=== PATIENT | female | born 1965 | race African-American/Black ===

== ENCOUNTER → 2016-03-24 | Day surgery (SDC) | payer OTHER ==
--- NOTE | 2016-03-24 12:02 | Diag Imaging Result Document ---
PROCEDURE NAME: US BREAST LIMITED UNILAT-LT - 03/24/2016 ULTRASOUND OF THE LEFT BREAST: FINDINGS: The patient was originally intended to have an ultrasound-guided biopsy of abnormality seen previously on 02/29/2016, principally visible on images 1 through 10. This is not reproducible on the current study. The area of inhomogeneous hypoechoic fibroglandular tissue which was demonstrated superolaterally on the previous study on images 25 through 39 is also less conspicuous on the current study. This being the case, biopsy was deferred and further ultrasonographic followup in 6 months is recommended. IMPRESSION: Diminishment of focal ultrasonographic findings 02/29/2016. Advise further ultrasonographic followup. ACR BI-RADS CATEGORY 3: PROBABLY BENIGN FINDING - SHORT INTERVAL FOLLOW-UP IS SUGGESTED. NOTE: This facility is accredited by the [employer] for Mammography. A negative mammography report should not delay biopsy if a dominant or clinically suspicious mass is present. Some cancers are not identified by mammography. Adenosis and dense breasts may obscure an underlying neoplasm.
== END | disposition home or self-care (01) ==
LOC: EDSTATUS 10:00 → EEVIPCON 10:00 → US 10:01
PROVIDERS: ATTEND Radiology Diagnostic Radiology
DX: R92.8 Other abnormal and inconclusive findings on diagnostic imaging of breast (principal); C16.9 Malignant neoplasm of stomach, unspecified

== ENCOUNTER 2016-05-08 12:43 | Inpatient (IN) | payer OTHER ==
[2016-05-08] MEDS ORDERED: NS 1,000 ML IV ONE (13:22)
--- NOTE | 2016-05-08 13:27 | PROVIDER DOCUMENTATION ---
HPI-Neurological Disorder - General Chief Complaint: Weakness Stated Complaint: Weakness x1 week Time Seen by Provider: 05/08/16 13:04 Allergies/Adverse Reactions: Patient Allergies Allergy/AdvReac Type Severity Reaction Status Date / Time No Known Allergies Allergy Verified 05/08/16 13:32 Home Medications: Home Medication List Medication Instructions Recorded Confirmed Last Taken Type Fluticasone 50 Mcg Nasal [place] 1 spray ALEX DAILY 06/11/13 05/01/16 05/01/16 History [Flonase] Tizanidine [Zanaflex] 4 mg PO TID 06/11/13 05/01/16 05/01/16 History Gabapentin [Neurontin] 600 mg PO TID 03/01/15 05/01/16 03/01/16 23:00 History Esomeprazole Magnesium [Nexium] 40 mg PO DAILY 05/13/15 05/01/16 05/01/16 History Mirtazapine [Remeron] 30 mg PO HS 05/13/15 05/01/16 05/01/16 History Ondansetron [Zofran] 4 mg PO Q6H PRN PRN #10 tablet 06/05/15 05/01/16 02/29/16 Rx Hydroxyzine HCl 25 mg PO 3-4XDAY PRN PRN 08/05/15 05/01/16 Unknown History Albuterol Sulfate Inhaler 2 puff INH DAILY PRN PRN #0 inhaler 08/06/15 05/01/16 Unknown Rx [Ventolin Hfa] Cetirizine [Zyrtec] 10 mg PO DAILY PRN PRN #0 tablet 08/06/15 05/01/16 Unknown Rx Alprazolam [Xanax] 1 mg PO TID 03/03/16 05/01/16 03/02/16 23:00 History Diphenhydramine/Antacid/Lidocaine 5 ml PO DIRECTED PRN 03/03/16 05/01/16 Unknown History Enoxaparin [Lovenox] 60 mg SUBQ Q12H 03/03/16 05/01/16 05/01/16 History Lidocaine 2% Viscous [Xylocaine 2% 5 - 10 ml PO Q4H PRN 03/03/16 05/01/16 Unknown History Viscous] Nystatin Susp [Mycostatin Susp] 5 ml PO 4XDAY PRN 03/03/16 05/01/16 Unknown History Oxycodone HCl 30 mg PO Q4H 03/03/16 05/01/16 05/01/16 History Prochlorperazine [Compazine] 10 mg PO Q4-6H PRN PRN 03/03/16 05/01/16 03/02/16 14:00 History Morphine Liquid [Roxanol Conc. 0.25 - 1 ml PO Q1H PRN PRN 05/01/16 05/01/16 History Liquid] Promethazine [Phenergan] 25 mg PO Q6H PRN PRN 05/01/16 05/01/16 Unknown History - History of Present Illness-Neuro Nature of Presenting Problem: A 50 y/o F who had recent visit to ER and was diagnosed with hypokalemia and was recommended to see PCP, pt on hospice at home, today she presented with worsening of weakness and left sided weakness started today morning unsure of timings, pt gets pain medications Headache Location: reports: global. denies: frontal Severity: reports: mild Onset/Duration: reports: unsure Timing: reports: still present Context: reports: paresthesia, facial droop Character of Altered Mental Status: reports: N/A Any recent trauma/injury?: reports: none Character of Deficits: reports: falling New weakness or altered sensation location:: reports: LUE, LLE, left facial, general (diffuse) Cognitive Baseline: alert, oriented x3 Associated Symptoms: reports: denies symptoms Similar Symptoms Previously?: Yes Recently seen or treated by another doctor?: Yes - Seizure First time to have a seizure?: No Witnessed seizure?: No Review of Systems - Adult - REVIEW OF SYSTEMS - ADULT Constitutional: reports: no symptoms reported Eyes: reports: no symptoms reported Ears, Nose, Mouth & Throat: reports: no symptoms reported Cardiovascular: reports: no symptoms reported Respiratory: reports: no symptoms reported Gastrointestinal: reports: no symptoms reported Genitourinary: reports: no symptoms reported Musculoskeletal: reports: no symptoms reported Integumentary: reports: no symptoms reported Neurological: reports: see HPI Psychiatric: reports: no symptoms reported Endocrine: reports: no symptoms reported Hematologic/Lymphatic: reports: no symptoms reported Allergic/Immunologic: reports: no symptoms reported All Other Systems: Reviewed and Negative Past History - Adult - PAST MEDICAL HISTORY-ADULT Review of Records: reports: Old Records Reviewed, Nursing Assessment Review, Medications Reviewed, Social history reviewed & non-contributory. Major Childhood Illnesses: reports: denies history Cardiovascular: reports: HTN, hyperlipidemia, palpitations Respiratory: reports: other (sarcoid) Gastrointestinal: reports: cancer (stomach), diverticulosis, GERD Obstetrical/Gynecological: reports: denies history, uterine/ovarian cancer Genitourinary: reports: kidney stones, chronic UTI's Musculoskeletal: reports: chronic pain, fibromyalgia Neurological: reports: headaches/migraines Psychiatric: reports: anxiety, depression Endocrine/Immune: reports: thyroid disorder Other Conditions: reports: denies history - PRIOR SURGERIES/PROCEDURES Surgical/Procedure History: reports: BTL, other (parathyroid x2) - IMMUNIZATION STATUS Childhood Immunizations: See Nurse Assessment Flu Vaccine: See Nurse Assessment - FAMILY HISTORY Family History: diabetes, HTN Physical Exam- Neurological - Physical Exam-Neuro Initial Vital Signs Reviewed: Yes General Appearance: mild distress Eye Exam: right eye: normal inspection, PERRL, EOMI HENMT: normocephalic/atraumatic, other (dry mucous membranes) Head Injury: no evidence of injury Neck: non-tender, supple, normal inspection. 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 Exam: normal hearing, normal speech, PERRL Coordination/Gait: normal finger to nose Motor/Sensory: no motor deficit, no sensory deficit, no pronator drift Neurologic: other (poorly follows command unable to do comprehensive neuroexam) Progress - PLAN OF CARE/RESULTS Progress/Plan/Lab Results: Laboratory Tests 05/08/16 05/08/16 05/08/16 13:20 13:20 13:20 WBC 9.77 RBC 3.49 L Hgb 11.2 L Hct 32.1 L MCV 92.0 MCH 32.1 H MCHC 34.9 RDW Std Deviation 13.1 Plt Count 187 MPV 9.7 Immature Gran % (Auto) 0.2 Neut % (Auto) 88.4 H Lymph % (Auto) 6.3 L [place] % (Auto) 4.9 Eos % (Auto) 0.1 Baso % (Auto) 0.1 Immature Gran # (Auto) 0.02 Neut # (Auto) 8.63 H Lymph # (Auto) 0.62 L [place] # (Auto) 0.48 Eos # (Auto) 0.01 Baso # (Auto) 0.01 PT INR PTT (Actin FS) D-Dimer 2.44 H Sodium 142 Potassium 2.8 L Chloride 96 L Carbon Dioxide 28 Anion Gap 18 BUN 9 Creatinine 0.8 Estimated GFR/1.73 m2 > 60 BUN/Creatinine Ratio 11 Glucose 110 H Calculated Osmolality 282 Calcium 10.9 H Magnesium 1.7 Total Bilirubin 0.62 AST 19 ALT 23 Alkaline Phosphatase 76 Creatine Kinase 20 L Troponin T Sqg-[id number]-[id number] Pept Total Protein 7.5 Albumin 4.5 Globulin 3.0 Albumin/Globulin Ratio 1.5 05/08/16 05/08/16 05/08/16 13:20 13:20 13:20 WBC RBC Hgb Hct MCV MCH MCHC RDW Std Deviation Plt Count MPV Immature Gran % (Auto) Neut % (Auto) Lymph % (Auto) [place] % (Auto) Eos % (Auto) Baso % (Auto) Immature Gran # (Auto) Neut # (Auto) Lymph # (Auto) [place] # (Auto) Eos # (Auto) Baso # (Auto) PT 12.7 H INR 1.20 PTT (Actin FS) 19.8 L D-Dimer Sodium Potassium Chloride Carbon Dioxide Anion Gap BUN Creatinine Estimated GFR/1.73 m2 BUN/Creatinine Ratio Glucose Calculated Osmolality Calcium Magnesium Total Bilirubin AST ALT Alkaline Phosphatase Creatine Kinase Troponin T < 0.010 Vnj-[id number]-Oanbdbichec Pept 437 H Total Protein Albumin Globulin Albumin/Globulin Ratio Orders Category Date Time Status Admit - [facility] Routine AdmDCTranf 05/08/16 16:00 Ordered Call Admitting on Arrival AT ADMISSION Care 05/08/16 16:01 Active Cardiac Monitoring DIRECTED Care 05/08/16 13:21 Active Neurological Check Q4H Care 05/08/16 16:01 Active Saline Loc NOW Care 05/08/16 13:21 Active Vital Signs Order ARRIVAL TO ROOM Care 05/08/16 16:00 Active ANGIOGRAM/PULMONARY ARTERIES [CT] Stat Exams 05/08/16 16:02 Ordered CHEST-1 VIEW [RAD] Stat Exams 02/20/17 13:21 Completed HEAD W/O CONTRAST [CT] Stat Exams 05/08/16 13:20 Completed CBC WITH ELECTRONIC DIFF [HEME] Stat Lab 05/08/16 13:20 Completed CK PROFILE [SP CHEM] Stat Lab 05/08/16 13:20 Completed COMPREHENSIVE METABOLIC PANEL [CHEM] Stat Lab 05/08/16 13:20 Completed D-DIMER [CHEM] Stat Lab 05/08/16 13:20 Completed MAGNESIUM [CHEM] Stat Lab 05/08/16 13:20 Completed PRO B-NATRIURETIC PEPTIDE Stat Lab 05/08/16 13:20 Completed PROTIME WITH INR [COAG] Stat Lab 05/08/16 13:20 Completed PTT [COAG] Stat Lab 05/08/16 13:20 Completed TROPONIN T Stat Lab 05/08/16 13:20 Completed 0.9% Sodium Chloride Inj [Ns] 1,000 ml Med 05/08/16 13:22 Discontinued IV 999 mls/hr Hydromorphone [Dilaudid] Med 05/08/16 14:38 Discontinued 1 mg IV NOW ONE Morphine Med 05/08/16 16:00 Active 2 mg IV Q2H PRN PRN Morphine Med 05/08/16 16:00 Discontinued 4 mg IV NOW ONE Potassium Chloride 20% Liquid Med 05/08/16 15:14 Discontinued 40 meq PO NOW ONE Potassium Chloride 40 Meq/Swi 100 ml Med 05/08/16 15:59 Active IV ONCE Oxygen Device Routine Oth 05/08/16 16:01 Active EKG [EKG] Stat Ther 05/08/16 13:05 Draft Vital Signs Temp Pulse Resp BP Pulse Ox 05/08/16 15:03 98 F 70 18 155/87 100 05/08/16 13:02 98.0 F 102 H 22 155/119 100 No Known Allergies Allergy (Verified 05/08/16 13:32) Fluticasone 50 Mcg Nasal [place] [Flonase] 1 spray ALEX DAILY 06/11/13 Tizanidine [Zanaflex] 4 mg PO TID 06/11/13 Gabapentin [Neurontin] 600 mg PO TID 03/01/15 Esomeprazole Magnesium [Nexium] 40 mg PO DAILY 05/13/15 Mirtazapine [Remeron] 30 mg PO HS 05/13/15 Ondansetron [Zofran] 4 mg PO Q6H PRN PRN #10 tablet 06/05/15 Hydroxyzine HCl 25 mg PO 3-4XDAY PRN PRN 08/05/15 Albuterol Sulfate Inhaler [Ventolin Hfa] 2 puff INH DAILY PRN PRN #0 inhaler Cetirizine [Zyrtec] 10 mg PO DAILY PRN PRN #0 tablet 08/06/15 Alprazolam [Xanax] 1 mg PO TID 03/03/16 Diphenhydramine/Antacid/Lidocaine 5 ml PO DIRECTED PRN 03/03/16 Enoxaparin [Lovenox] 60 mg SUBQ Q12H 03/03/16 Lidocaine 2% Viscous [Xylocaine 2% Viscous] 5 - 10 ml PO Q4H PRN 03/03/16 Nystatin Susp [Mycostatin Susp] 5 ml PO 4XDAY PRN 03/03/16 Oxycodone HCl 30 mg PO Q4H 03/03/16 Prochlorperazine [Compazine] 10 mg PO Q4-6H PRN PRN 03/03/16 Morphine Liquid [Roxanol Conc. Liquid] 0.25 - 1 ml PO Q1H PRN PRN 05/01/16 Promethazine [Phenergan] 25 mg PO Q6H PRN PRN 05/01/16 Laboratory 05/08/16 05/08/16 05/08/16 13:20 13:20 13:20 WBC RBC Hgb Hct MCV MCH MCHC RDW Std Deviation Plt Count MPV Immature Gran % (Auto) Neut % (Auto) Lymph % (Auto) [place] % (Auto) Eos % (Auto) Baso % (Auto) Immature Gran # (Auto) Neut # (Auto) Lymph # (Auto) [place] # (Auto) Eos # (Auto) Baso # (Auto) PT 12.7 H INR 1.20 PTT (Actin FS) 19.8 L D-Dimer Sodium Potassium Chloride Carbon Dioxide Anion Gap BUN Creatinine Estimated GFR/1.73 m2 BUN/Creatinine Ratio Glucose Calculated Osmolality Calcium Magnesium Total Bilirubin AST ALT Alkaline Phosphatase Creatine Kinase Troponin T < 0.010 Epn-A-Qvwllpxhavo Pept 437 H Total Protein Albumin Globulin Albumin/Globulin Ratio 05/08/16 05/08/16 05/08/16 13:20 13:20 13:20 WBC 9.77 RBC 3.49 L Hgb 11.2 L Hct 32.1 L MCV 92.0 MCH 32.1 H MCHC 34.9 RDW Std Deviation 13.1 Plt Count 187 MPV 9.7 Immature Gran % (Auto) 0.2 Neut % (Auto) 88.4 H Lymph % (Auto) 6.3 L [place] % (Auto) 4.9 Eos % (Auto) 0.1 Baso % (Auto) 0.1 Immature Gran # (Auto) 0.02 Neut # (Auto) 8.63 H Lymph # (Auto) 0.62 L [place] # (Auto) 0.48 Eos # (Auto) 0.01 Baso # (Auto) 0.01 PT INR PTT (Actin FS) D-Dimer 2.44 H Sodium 142 Potassium 2.8 L Chloride 96 L Carbon Dioxide 28 Anion Gap 18 BUN 9 Creatinine 0.8 Estimated GFR/1.73 m2 > 60 BUN/Creatinine Ratio 11 Glucose 110 H Calculated Osmolality 282 Calcium 10.9 H Magnesium 1.7 Total Bilirubin 0.62 AST 19 ALT 23 Alkaline Phosphatase 76 Creatine Kinase 20 L Troponin T Wth-X-Plpydtchcvx Pept Total Protein 7.5 Albumin 4.5 Globulin 3.0 Albumin/Globulin Ratio 1.5 - EKG 1 EKG Interpretation (*Must complete 3 of following elements*): Abnormal (NSR nos specific T wave inversions) - XRAY 1 XRAY Study: Chest Impression: See EMR Report - CT/MRI 1 CT Study: Head Impression: See EMR Report - CONSULTS/PCP/HOSPITALIST Notification #1 *Consult/PCP/Hospitalist*: Dr Barroso Time Discussed: 16:05 Consult Disposition: Admit Departure - Departure Time of Disposition Order: 16:03 DIAGNOSIS: Hypokalemia due to loss of potassium Chest pain Qualifiers: Chest pain type: unspecified Qualified Code(s): R07.9 - Chest pain, unspecified Chronic pain Qualifiers: Chronic pain type: due to neoplasm Qualified Code(s): G89.3 - Neoplasm related pain (acute) (chronic) Disposition: ADMITTED INPATIENT 09 Certified Medical Emergency: Emergent Condition: Fair Referrals: Mehul Barroso MD [Primary Care Provider] - - Critical Care Note Comments: A 50 y/o F who was on hospice presented with non specific complains including chest pain and unilatereal weakness no acute changes on EKG and CXR CT scan no acute changes given pain medications not well controlled will admit for pain management
[2016-05-08 13:53] LABS: BASO% 0.1 % (0.0-0.8); EOS# 0.01 X1000 (0.0-0.7); EOS% 0.1 % (0.0-10.0); HEMATOCRIT 32.1 % (37.0-47.0); HEMOGLOBIN 11.2 g/dL (12.0-16.0); IMM GRAN# 0.02 X1000 (0.0-0.04); IMM GRAN% 0.2 % (0.0-0.5); LYMPH# 0.62 X1000 (1.2-3.4); LYMPH% 6.3 % (20.5-51.1); MANUAL DIFF NEEDED? NO; MCH 32.1 PG (27-31); MCHC 34.9 g/dL (33-37); MONO# 0.48 X1000 (0.11-0.59); MONO% 4.9 % (1.7-9.3); MPV 9.7 FL (7.4-10.4); NEUT% 88.4 % (42.2-75.2); PLT 187 X1000 (130-400); RBC 3.49 XMIL (4.2-5.4)
[2016-05-08 14:00] LABS: INR 1.2; PROTIME 12.7 Seconds (9.2-11.7)
[2016-05-08 14:01] LABS: PTT 19.8 Seconds (22.0-36.0)
[2016-05-08 14:16] LABS: AGAP 18; ALBUMIN 4.5 g/dL (3.5-5.0); ALKALINE PHOSPHATASE 76 U/L (32-104); BUN 9 mg/dL (8-22); CALCIUM 10.9 mg/dL (8.8-10.2); CHLORIDE 96 mmol/L (98-107); CK PROFILE 20 U/L (24-173); COSMO 282; GOT 19 U/L (10-30); GPT 23 U/L (10-36); MAGNESIUM 1.7 mg/dL (1.5-2.7); POTASSIUM 2.8 mmol/L (3.5-5.1); SODIUM 142 mmol/L (136-145); TCO2 28 mmol/L (25-35); TOTAL BILIRUBIN 0.62 mg/dL (0.20-1.00); TOTAL PROTEIN 7.5 g/dL (6.3-8.3)
--- NOTE | 2016-05-08 14:32 | Diag Imaging Result Document ---
PROCEDURE NAME: HEAD W/O CONTRAST - 05/08/2016 CT HEAD WITHOUT CONTRAST: TECHNIQUE: A dose reduction protocol was used. COMPARISON: 05/01/2016. FINDINGS: There is no evidence of intracranial hemorrhage, mass effect, midline shift, or hydrocephalus. There is no evidence of infarct, although acute infarcts may not be immediately visible. IMPRESSION: No visible acute process. No hemorrhage or mass effect.
[2016-05-08] MEDS ORDERED: DILAUDID IV ONE (14:38)
--- NOTE | 2016-05-08 14:52 | Diag Imaging Result Document ---
PROCEDURE NAME: CHEST-1 VIEW - 05/08/2016 ONE-VIEW CHEST: COMPARISON: 05/06/16. FINDINGS: The heart size is normal. The lungs appear clear. There is no pleural effusion or pneumothorax identified. Central venous catheter remains in place. IMPRESSION: No evidence of acute disease.
[2016-05-08] MEDS ORDERED: POTASSIUM CHLORIDE 20% LIQUID PO ONE (15:14)
--- NOTE | 2016-05-08 15:34 | EKG Report ---
Test Performed on : 05/08/2016 1:34:08 PM Test Reason : WEAKNESS Blood Pressure : / mmHG Vent. Rate : 061 BPM Atrial Rate : 061 BPM P-R Int : 162 ms QRS Dur : 078 ms QT Int : 404 ms P-R-T Axes : 042 049 033 degrees QTc Int : 406 ms Normal sinus rhythm. Minimal voltage criteria for LVH, may be normal variant Nonspecific T wave abnormality Abnormal ECG When compared with ECG of 08-MAY-2016 13:27, (Unconfirmed) Sinus rhythm. has replaced Atrial fibrillation. Vent. rate has decreased BY [address] no longer depressed in Anterior leads Unconfirmed Result
[2016-05-08] MEDS ORDERED: POTASSIUM CHLORIDE 40 MEQ/SWI 100 ML IV ONE (15:59)
[2016-05-08] MEDS ORDERED: MORPHINE IV ONE ×2 (16:00→18:21)
[2016-05-08] MEDS: MORPHINE IV PRN ×3 (17:45→22:51)
[2016-05-08] MEDS ORDERED: ZYRTEC PO PRN (20:10)
[2016-05-08] MEDS ORDERED: COMPAZINE PO PRN (20:10)
[2016-05-08] MEDS ORDERED: PHENERGAN PO PRN (20:10)
[2016-05-08] MEDS ORDERED: VENTOLIN HFA INH PRN (20:10)
[2016-05-08] MEDS ORDERED: ZOFRAN PO PRN (20:10)
[2016-05-08] MEDS ORDERED: HYDROXYZINE PO PRN (20:10)
[2016-05-08] MEDS: KLONOPIN PO PRN (20:54)
[2016-05-08] MEDS: REMERON SOLTAB PO SCH (21:00)
[2016-05-08] MEDS: OXY IR PO SCH (21:11)
[2016-05-08] MEDS: CLINIMIX E 4.25%-5% SOLUTION 1,000 ML IV SCH (22:51)
[2016-05-08] MEDS: PROTONIX IV SCH (22:51)
[2016-05-08] MEDS: SODIUM CHLORIDE 0.9% INJ SCH (22:51)
[2016-05-09] MEDS: MORPHINE IV PRN (02:34)
[2016-05-09] MEDS: OXY IR PO SCH ×6 (03:08→18:52)
[2016-05-09] MEDS: ROXANOL CONC. LIQUID PO PRN (04:19)
[2016-05-09 06:09] LABS: MANUAL DIFF NEEDED? NO
--- NOTE | 2016-05-09 06:14 | HISTORY AND PHYSICAL ---
CHIEF COMPLAINT: Weakness, chest pain, headache, left-sided weakness, a lot of pain, multiple somatic complaints. HISTORY OF PRESENT ILLNESS: She is a 50-year-old, female who, unfortunately, has been suffering from metastatic CA of the stomach. Recently under the care of Dr. Gonzalez in [place]. Relegated to hospice care. Last time I had seen her was in April of last year. She was seen by several physicians in between which include Dr. Barbosa, Dr. Solis, Dr. Peoples, and Dr. Yeh. She has a port on the left side. She has a linitis plastica, metastatic disease in the volvulus. She was returned to the emergency room after revocation from the [facility]. In the ER, CT head is negative. Chest x-ray was stable. Potassium is low. She was given IV fluids, potassium replacement, and pain control. She lost a lot of weight. Apparently, she is a full code. PAST MEDICAL HISTORY: Metastatic CA of stomach, depression, protein calorie malnutrition, acid reflux disease, chronic pain. PAST SURGICAL HISTORY: Thyroid surgery, vaginal hysterectomy with the left ovary removed, left hip surgery, Port-A-Cath on the left side. MEDICINES: Dilaudid, Flonase, hydroxyzine, Remeron, Zyrtec. She is also on Zanaflex 4 mg p.o. t.i.d., Neurontin 600 t.i.d., Nexium 40 daily, nystatin suspension as directed, oxycodone 30 q.4, Roxanol as needed. ALLERGIES: Not known. SOCIAL HISTORY: , 3 children. Disabled. No smoking. No drug abuse. No alcohol. FAMILY HISTORY: Father of lung cancer at 55. Mom of heart failure. Brother at the age of 35. REVIEW OF SYSTEMS: HEENT: Headache, diplopia, weakness on the left side. Neck: No neck pain. No rigidity. Cardiopulmonary: Chest pain, shortness of breath. No PND. No orthopnea. Port on the left side. GI: History of nausea. No altered bowel habits. No bleeding per rectum. : No history of hesitancy, frequency. No swelling of legs. No joint pain. Neurologic: No obvious focal symptoms. PHYSICAL EXAMINATION: VITAL SIGNS: Vitals are stable, 5 feet 4 inches, 150 pounds. HEENT: Atraumatic, normocephalic. Pupils equal, react to light, and difficult to assess extraocular muscles. Tongue is in the midline. NECK: Supple. No rigidity. CHEST: Bilateral air entry. Port was seen in the left of the chest. HEART: Sounds are tachycardic. ABDOMEN: Belly is soft, scaphoid, diffusely tender. No signs of peritonitis. EXTREMITIES: No peripheral edema, cyanosis, clubbing. NEUROLOGIC: No obvious focal deficits. INVESTIGATIONS: CBC: White cell count 9.7, hematocrit 32, platelets 187,000. PT 12, INR 1.2. D- dimer 2.4. SMA 7 is normal. Potassium 2.8. Magnesium 1.7. Cardiac enzymes are normal. ProBNP is normal. CA level is 22.1. ASSESSMENT AND PLAN: A 50-year-old, female admitted to the hospital with stage IV metastatic stomach cancer, revoked hospice care. We will get the reports from Dr. Gonzalez in [place]. 1. Protein calorie malnutrition. Intravenous Clinimix. 2. Hypokalemia. Replace the potassium. 3. Deep venous thrombosis and gastrointestinal prophylaxis with Lovenox and Protonix. 4. Chronic anxiety, on Xanax. 5. Chronic pain, on gabapentin and oxycodone. 6. Chronic insomnia, on Remeron. 7. Pain control with morphine. 8. Chest pain. Positive D-dimer. CT pulmonary angiogram followup, 9. Headache, diplopia. There is no meningitis. CT head is negative. If symptoms do not improve, MRI of the brain and neurology consult. 10. Living will, full code. We will follow up on the clinical course.
[2016-05-09 06:33] LABS: BASO% 0.1 % (0.0-0.8); EOS# 0.03 X1000 (0.0-0.7); EOS% 0.4 % (0.0-10.0); HEMATOCRIT 28.2 % (37.0-47.0); HEMOGLOBIN 9.8 g/dL (12.0-16.0); LYMPH# 0.74 X1000 (1.2-3.4); MCH 32.9 PG (27-31); MCHC 34.8 g/dL (33-37); MCV 94.6 FL (81-99); MONO# 0.68 X1000 (0.11-0.59); MONO% 9.2 % (1.7-9.3); MPV 9.8 FL (7.4-10.4); NEUT% 80.3 % (42.2-75.2); PLT 138 X1000 (130-400); RBC 2.98 XMIL (4.2-5.4)
[2016-05-09 06:34] LABS: AGAP 12; BUN 14 mg/dL (8-22); CALCIUM 10.3 mg/dL (8.8-10.2); CHLORIDE 101 mmol/L (98-107); COSMO 282; MAGNESIUM 1.9 mg/dL (1.5-2.7); POTASSIUM 3.3 mmol/L (3.5-5.1); SODIUM 140 mmol/L (136-145); TCO2 27 mmol/L (25-35)
[2016-05-09] MEDS: CLINIMIX E 4.25%-5% SOLUTION 1,000 ML IV SCH ×2 (06:44→18:32)
--- NOTE | 2016-05-09 08:21 | Diag Imaging Result Document ---
PROCEDURE NAME: ANGIOGRAM/PULMONARY ARTERIES - 05/08/2016 CT OF THE CHEST WITH INTRAVENOUS CONTRAST: FINDINGS: There are no filling defects in the pulmonary arteries. The aorta is normal in appearance. There is no evidence of abnormal fluid collections. There is some fullness in the visualized portions of the renal collecting systems. There are calcified nodes in the pre-gilbert and right paratracheal region. There is no evidence of acute pulmonary parenchymal disease. IMPRESSION: No evidence of acute disease. The possibility of urinary tract obstruction should be considered. The findings were discussed with Dr. Barroso at 0805 hours by telephone.
[2016-05-09] MEDS ORDERED: POTASSIUM CHLORIDE 40 MEQ/SWI 100 ML IV ONE (09:00)
[2016-05-09] MEDS ORDERED: POTASSIUM CHLORIDE 20 MEQ/SWI 100 ML IV SCH (09:00)
[2016-05-09] MEDS: NEURONTIN PO SCH ×4 (09:06→18:16)
[2016-05-09] MEDS: FLONASE NAS SCH ×2 (09:07→09:15)
[2016-05-09] MEDS: LOVENOX SUBQ SCH ×2 (09:07→09:16)
[2016-05-09] MEDS: ZANAFLEX PO SCH ×5 (09:07→20:35)
[2016-05-09] MEDS: XANAX PO SCH ×5 (09:09→20:34)
[2016-05-09] MEDS ORDERED: DILAUDID IV ONE (10:00)
[2016-05-09] MEDS ORDERED: ZOFRAN IV PRN (10:16)
[2016-05-09] MEDS ORDERED: DILAUDID PCA VIAL IV PRN (10:16)
[2016-05-09] MEDS ORDERED: PHENERGAN IV PRN (10:16)
[2016-05-09] MEDS ORDERED: NARCAN IV PRN (10:16)
[2016-05-09] MEDS ORDERED: SODIUM CHLORIDE 0.9% INJ PRN (10:16)
[2016-05-09] MEDS ORDERED: LR 1,000 ML ONE (10:41)
[2016-05-09] MEDS ORDERED: ASPERCREME TOP PRN (14:10)
[2016-05-09] MEDS: REMERON SOLTAB PO SCH (20:34)
[2016-05-09] MEDS: PROTONIX IV SCH (20:35)
[2016-05-10] MEDS: CLINIMIX E 4.25%-5% SOLUTION 1,000 ML IV SCH ×2 (03:17→16:39)
[2016-05-10] MEDS ORDERED: DILAUDID PCA VIAL IV PRN (09:21)
[2016-05-10] MEDS: NEURONTIN PO SCH ×3 (12:30→22:33)
[2016-05-10] MEDS: ZANAFLEX PO SCH ×3 (12:30→22:32)
--- NOTE | 2016-05-10 13:03 | Diag Imaging Result Document ---
PROCEDURE NAME: MRI BRAIN W W/O CONTRAST - 05/10/2016 MRI BRAIN WITH AND WITHOUT: TECHNIQUE: Axial, sagittal, and coronal images were obtained in multiple sequences. These were followed by postcontrast axial and coronal images. There is quite a bit of motion on the postcontrast images. FINDINGS: No recent infarct. No microvascular ischemic changes. No mass or midline shift. No enhancing lesion on the postcontrast images. No hydrocephalus. No epidural or subdural fluid collection. No sinus opacification. No air fluid levels. IMPRESSION: Negative MRI of the brain.
--- NOTE | 2016-05-10 13:49 | CONSULTATION ---
DATE OF CONSULTATION: 05/10/2016 ADDENDUM REPORT: We have records from [facility] showing an admission there about a month ago. She had complained of a headache and had a neurology consult then. Brain MRI with and without contrast, 04/21/2016, was reported as unremarkable. She had lumbar and cervical MRI scans which were also unremarkable during that hospitalization. She had complained of a severe headache beginning around the first of April, right-sided, throbbing with photophobia and no vision disturbance initially. She had a past history of a headache consistent with migraine. She did not have any neurologic deficit reported on exam. Facial appearance, facial motility were not specifically reported in the exam recorded on 04/23/2014. She was managed for migraine. I will check on the MRI when that is done here as ordered. Further plans will depend on that report. Thanks again for asking me to see Ms. Vee. MTDD
--- NOTE | 2016-05-10 15:58 | CONSULTATION ---
DATE OF CONSULTATION: 05/10/2016 PATIENT LOCATION: Room 467B. HISTORY OF PRESENT ILLNESS: Ms. Vee is 50 years old and she has metastatic stomach cancer. Her problem prompting this consultation is that she has had headache and vision disturbance. She reports onset of headache about 2 weeks ago, mostly in the back of the head with a pressure sensation and some associated tightness and possibly stiffness in her neck. She reports discomfort when she turns her head. Within the last week, she has noticed some blurred vision and maurice diplopia. She believes the diplopia has consistently been horizontal, not vertical. She has not done cover/uncover to see if diplopia would resolve. In the last several days she has noticed weakness over the left side of her face, facial asymmetry. She has had some numbness and tingling in the hands and possibly some loss of unit leader strength in the hands in recent days. Workup here includes noncontrast CT scan of the head reported unremarkable. She reports brain MRI at [facility] about 2 weeks ago. She has had lab showing nothing remarkable. She has not had drug screen reported this admission. Home medicines include oxycodone, morphine, oxymorphone, gabapentin, hydroxyzine, mirtazapine, tizanidine, alprazolam. Systolic blood pressures have ranged 130s to 170s. She has been afebrile. PHYSICAL EXAMINATION: On exam, Ms. Vee is awake, alert, attentive, appropriate, oriented. Speech is not dysarthric. Language function is intact. There is not definite meningismus. She has some discomfort with passive head turning, particularly with rotating left and right more than with extension. She has full visual up tested by confrontational finger counting. She has limited abduction with each eye. She has full adduction and good vertical eye movements bilaterally. Facial motility is diminished on the left in a lower motor neuron pattern. She reports equal pinprick and light touch appreciation over the left and right face. Left blink with corneal reflex is diminished when each cornea is touched and right blink is brisk when each cornea is touched. Tongue is midline. Gag is intact. She has good power on limited exam in the limbs. She has good unit leader strength bilaterally. She did well on [id number] testing bilaterally. She reports equal pinprick and light touch appreciation over the hands symmetrically. 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 Features are concerning for basilar meningitis or brainstem lesion. Carcinomatous meningitis would be ominous. Bilateral 6th palsy is usually due to elevated intracranial pressure. I will check on the previous MRI report from [facility] and order a brain MRI with contrast today. Further plans will depend on that report and on her clinical course. I discussed LP as possible next step with patient and daughter at bedside. Thanks for asking me to see Ms. Vee. [facility]
[2016-05-10] MEDS: FLONASE NAS SCH (16:37)
[2016-05-10] MEDS: LOVENOX SUBQ SCH (16:38)
[2016-05-10] MEDS: XANAX PO SCH ×2 (16:38→22:38)
[2016-05-10 17:19] LABS: DIFF NEEDED? NO
--- NOTE | 2016-05-10 17:20 | PROGRESS NOTE ---
DATE: 05/10/2016 LP was done at the L4 space on first pass with opening pressure 51-52 cm of CSF. Fluid was initially slightly blood tinged, became frankly bloody, and then very slowly cleared. CSF analysis will be done on the last tube which is grossly clear. She did not have immediate post spinal headache. Closing pressure was 8 cm of CSF. She tolerated LP well. [facility]
[2016-05-10 17:33] LABS: GLUCOSE CSF 59 mg/dL (39-75)
[2016-05-10 18:03] LABS: APPEARANCE CLEAR; RBC BF 166 /cumm; WBC BF 2 /cumm
[2016-05-10] MEDS: REMERON SOLTAB PO SCH (22:32)
[2016-05-10] MEDS: PROTONIX IV SCH (22:33)
[2016-05-11] MEDS: CLINIMIX E 4.25%-5% SOLUTION 1,000 ML IV SCH ×4 (04:06→18:50)
[2016-05-11] MEDS: OXY IR PO PRN ×3 (06:37→20:51)
[2016-05-11] MEDS: ZANAFLEX PO SCH (06:42)
[2016-05-11] MEDS ORDERED: NEURONTIN PO PRN (09:41)
--- NOTE | 2016-05-11 12:35 | PROGRESS NOTE ---
DATE: 05/11/2016 PATIENT LOCATION: Room 364. SUBJECTIVE: Ms. Vee's spinal fluid results are unremarkable thus far. Cytology report is pending. She reports significant improvement in headache for a period of a few hours or several hours late yesterday following LP, which lowered her CSF pressure substantially. Unfortunately, headache has returned overnight. Her vision continues to be difficult. OBJECTIVE: On exam, she is awake and alert. There is diminished abduction of the right eye about the same yesterday. Left lateral eye movement is improved compared to yesterday. 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 ASSESSMENT AND PLAN: She is persistent in her report that pain management is not adequate. I reviewed the medication list. She has several opiate medicines ordered p.r.n. including oxycodone which was dosed this morning and she does not recall that. In addition, she has her hydromorphone by [facility]. I do not have any urgent suggestion now. I am encouraged that her headache was temporarily better after lowering CSF pressure. We might consider adding acetazolamide. I would like to get the CSF cytology report before suggesting any other workup. I encouraged her to try to be patient with the pain management. Thanks for allowing me to follow Ms. Vee.
[2016-05-11] MEDS ORDERED: DILAUDID-HP 30 MG in NS 27 ML IV PRN (20:56)
[2016-05-11] MEDS: ZANAFLEX PO PRN (21:31)
[2016-05-11] MEDS: XANAX PO PRN (21:31)
[2016-05-11] MEDS: LOVENOX SUBQ SCH (21:33)
[2016-05-11] MEDS: REMERON SOLTAB PO SCH (21:33)
[2016-05-11] MEDS: PROTONIX IV SCH (21:33)
[2016-05-12] MEDS: CLINIMIX E 4.25%-5% SOLUTION 1,000 ML IV SCH ×5 (01:09→20:48)
[2016-05-12] MEDS: OXY IR PO PRN ×5 (01:11→21:34)
[2016-05-12] MEDS: ROXANOL CONC. LIQUID PO PRN ×2 (04:20→23:53)
[2016-05-12] MEDS: XANAX PO PRN (04:56)
[2016-05-12] MEDS: ZANAFLEX PO PRN ×2 (04:56→20:51)
[2016-05-12] MEDS: PHENERGAN IV PRN ×3 (08:49→20:47)
[2016-05-12] MEDS: BENADRYL IV PRN ×2 (12:39→19:34)
--- NOTE | 2016-05-12 13:05 | PROGRESS NOTE ---
DATE: 05/12/2016 Ms. Vee appeared to be sleeping peacefully and comfortably as I approached her bedside. In light of her reported headache, I did not disturb her sleep. Computer record review does not show CSF cytology report. I do not have any new suggestion today from a neurologic standpoint. Thanks for allowing me to follow Ms. Vee.
[2016-05-12] MEDS: KLONOPIN PO PRN ×2 (14:44→20:49)
[2016-05-12] MEDS: LOVENOX SUBQ SCH (18:50)
[2016-05-12] MEDS: SODIUM CHLORIDE 0.9% INJ SCH (20:46)
[2016-05-12] MEDS: PROTONIX IV SCH (20:46)
[2016-05-12] MEDS: REMERON SOLTAB PO SCH (20:48)
[2016-05-13] MEDS: CLINIMIX E 4.25%-5% SOLUTION 1,000 ML IV SCH ×4 (01:26→16:44)
[2016-05-13] MEDS: OXY IR PO PRN ×2 (02:57→09:50)
[2016-05-13] MEDS: ROXANOL CONC. LIQUID PO PRN ×3 (04:46→09:50)
[2016-05-13] MEDS: BENADRYL IV PRN (09:50)
[2016-05-13] MEDS ORDERED: VASOTEC IV PRN (12:47)
[2016-05-13] MEDS: LABETALOL IV PRN (13:22)
--- NOTE | 2016-05-13 13:26 | PROGRESS NOTE ---
DATE: 05/13/2016 SUBJECTIVE: Ms. Vee appears to be more confused. She is not getting any antibiotics, however she says she still has some headaches. Her blood pressure was 176/106. We had p.r.n. medications to treat her hypertension. -7
[2016-05-13] MEDS: LOVENOX SUBQ SCH (16:43)
[2016-05-13] MEDS: XANAX PO PRN (17:11)
[2016-05-13] MEDS: ZANAFLEX PO PRN (17:13)
[2016-05-13] MEDS: REMERON SOLTAB PO SCH (20:17)
[2016-05-13] MEDS: PROTONIX IV SCH (20:17)
[2016-05-14] MEDS: ZANAFLEX PO PRN (00:21)
[2016-05-14] MEDS: XANAX PO PRN (00:21)
[2016-05-14] MEDS ORDERED: MELATONIN PO ONE (01:13)
[2016-05-14] MEDS: OXY IR PO PRN (01:23)
[2016-05-14] MEDS: CLINIMIX E 4.25%-5% SOLUTION 1,000 ML IV SCH ×2 (01:25→10:01)
[2016-05-14] MEDS ORDERED: OXY IR PO PRN (09:58)
[2016-05-14] MEDS ORDERED: DURAGESIC 75 MICROGM/HR PATCH TD SCH (10:00)
[2016-05-14] MEDS: LABETALOL IV PRN (10:51)
--- NOTE | 2016-05-14 12:14 | PROGRESS NOTE ---
DATE: 05/14/2016 Ms. Vee, who has metastatic stomach cancer, is very restless. She probably is in a lot of pain. CSF is negative for meningitis. I tried to cut down on some medications. I discussed at length with her daughter and talked to her that most stronger pain medicines that we give are going to have morphine related side effects. However, probably to satisfy her, we decided to stop the morphine as well as hydromorphone and put her on a Duragesic patch as well as oxycodone. Overall prognosis is poor. The family understands that. -6
[2016-05-14] MEDS: ROXANOL CONC. LIQUID PO PRN ×3 (13:40→17:17)
[2016-05-14 15:49] VITALS: BP 177/95
--- NOTE | 2016-05-14 15:51 | PROGRESS NOTE ---
DATE: 05/14/2016 Ms. Vee continues to be restless. We decided to transfer her to ICU. However, in the meantime, the daughter mentioned that she wanted her transferred to Dr. Watt, the oncologist in [place]. I did call the transfer center and she is going to get back with me. If he does not reply within the next 75 minutes then we will transfer her back to ICU. Until then we will just keep her here. Patient has metastatic disease. She is a very sick person. It appears like family is somewhat in denial and they want full code. Will try to help her out as much as we can.
[2016-05-15] MEDS ORDERED: NORVASC PO SCH (09:00)
--- NOTE | 2016-05-15 22:50 | DISCHARGE SUMMARY ---
ADMISSION DATE: 05/08/2016 DISCHARGE DATE: 05/14/2016 DATE OF ADMISSION: 05/08/2016. DATE OF DISCHARGE: 05/14/2016 to [facility]. FINAL DIAGNOSIS: Intractable headache. Etiology to be determined. SECONDARY DIAGNOSES: 1. Metastatic CA stomach under the care of Dr. Watt. 2. Severe protein calorie malnutrition. 3. Acid reflux disease. 4. Chronic pain syndrome. 5. Reactive depression. 6. Port-A-Cath on the left side. PROCEDURES: 1. Lumbar puncture. 2. PCI pump. CONSULTANTS: Aquiles Vargas III, M.D. RADIOLOGY PROCEDURES: 1. MRI of the brain negative. 2. Pulmonary arteriogram with no evidence of acute disease and no pulmonary embolism. BRIEF HISTORY: Please see the H and P that was done on 05/08/2016. In brief, she is a 50-year-old unfortunate female diagnosed with metastatic CA stomach under the care of Dr. Watt, recently discharged from [facility]. Admitted under comfort care with hospice. Patient revocated and came to the emergency room twice with intractable headache and neck pain. The patient has been self-diagnosing that she has meningitis. The patient has a positive D-dimer with a DVT in the left leg. Refusing Lovenox injection. Patient had a negative workup for these headaches treated as a migraine. The examination is very difficult since the patient is agitated, restless, not able to focus eye to eye contact. HOSPITAL COURSE: The patient was ruled out for PE. For pain control. We started her on IV, H[employer] pump with Dilaudid. She was also given DVT/GI prophylaxis with Lovenox and Protonix. She has intractable headache, neck pain, and the patient thinks she has meningitis. As a result, I did a second opinion with Dr. Vargas. He thinks she has some neurological deficits and he did a lumbar puncture that did not show any evidence of meningitis. MRI of the brain is negative. Symptoms are out of proportion to the objective findings and pain is not able to adequately control. The patient's daughter is very demanding that she is not getting adequate help and they want her to be transferred out to either ICU or [facility]. Dr. Parsons was crm consultant this weekend. All the findings were reassuring. The patient has been transferred to Dr. Watt in [facility]. LABORATORIES: CBC: White cell count 7.3, hematocrit 28, platelets 138,000, PT 12, INR 1.2, D- dimer 2.4. Sodium 140, potassium 3.3, chloride 100, BUN 14, creatinine 0.8, glucose 129, calcium 10.3. LFTs were normal. proBNP is normal. CEA level 22.1. Fluid white cell count is normal. Normal glucose. Protein slightly elevated. Cryptococcal antigen is negative. Meningococcal was negative. Cytology is pending. DISPOSITION: The patient has been discharged to [facility] and Dr. Watt. DISCHARGE INSTRUCTIONS: 1. Continue on Nexium. 2. Lovenox 60 mg subcutaneous q.12 hours. 3. Morphine p.r.n. pain. 4. Nystatin as needed. 5. IV Clinimix 100 mL/h. 6. Klonopin 0.5 q.6. 7. Phenergan p.r.n. nausea. 8. 'Oxycodone 30 mg p.o. q.4. 9. Compazine as needed for nausea. 10. Roxanol as needed. 11. Neurontin 600 t.i.d. 12. Xanax 1 mg p.o. t.i.d. 13. Zanaflex 4 mg p.o. t.i.d. 14. Remeron 30 mg at bedtime. MTDD
== END 2016-05-14 17:45 | disposition short-term general hospital (02) | DRG 102 ==
LOC: EDBD → ED 12:43 → EDIPHOLD 12:44 → 4N 21:37 → 3N 05-10 18:26
PROVIDERS: ADMIT Internal Medicine; ATTEND Internal Medicine
PROC: 3E0436Z Introduction of Nutritional Substance into Central Vein, Percutaneous Approach (ICD-10-PCS; 2016-05-08)
PROC: 009U3ZX Drainage of Spinal Canal, Percutaneous Approach, Diagnostic (ICD-10-PCS; principal; 2016-05-10)
DX: G43.919 Migraine, unspecified, intractable, without status migrainosus (principal); E43 Unspecified severe protein-calorie malnutrition; C16.9 Malignant neoplasm of stomach, unspecified; C79.89 Secondary malignant neoplasm of other specified sites; H49.23 Sixth [abducent] nerve palsy, bilateral; I82.402 Acute embolism and thrombosis of unspecified deep veins of left lower extremity; K21.9 Gastro-esophageal reflux disease without esophagitis; I10 Essential (primary) hypertension; Z68.1 Body mass index [BMI] 19.9 or less, adult; E87.6 Hypokalemia; F41.9 Anxiety disorder, unspecified; G47.00 Insomnia, unspecified; G51.0 Bell's palsy; G89.3 Neoplasm related pain (acute) (chronic); F32.9 Major depressive disorder, single episode, unspecified; Z79.899 Other long term (current) drug therapy; Z79.891 Long term (current) use of opiate analgesic; Z80.1 Family history of malignant neoplasm of trachea, bronchus and lung; Z91.19 Patient's noncompliance with other medical treatment and regimen
CPT/HCPCS: 70450; 70553; 71010; 71020; 71275; 80048; 80053; 82378; 82550; 82945; 82948; 83735; 83880; 84157; 84484; 85025; 85379; 85610; 85730; 86403; 87496; 87529; 87532; 87653; 87798; 89050; 93005; 94761; 96365; 96366; 96374; 96375; 96376; A9579; C9113; J1170; J1200; J1650; J2270; J2550; J3480; J7030; J7120; Q9967; S0164